=== PATIENT | female | born 1960 | race Caucasian/White ===

== ENCOUNTER 2025-06-02 09:31 | Observation (INO) ==
--- NOTE | 2025-06-02 09:55 | Emergency Department Note ---
History of Present Illness General Chief complaint: Syncope Stated complaint: SYNCOPE 05/29/25 Time Seen by Provider: 06/02/25 09:51 History of Present Illness Maximum Pain Intensity: 5 This is a 64-year-old female that presents to the emergency department via private vehicle with complaints of "syncope". The patient notes that on 05/29/2025 she had syncopal episode. This was this past Saturday. Patient notes that her found her on the floor. Unclear how long she was down. There was no preceding symptoms prior to the syncopal event. Reportedly patient did vomit twice once she regained consciousness after the syncopal event. Patient presents today noting ongoing dizziness described as a room spinning sensation. She saw her PCP yesterday and was referred to the ER because she is not feeling any better. She did strike her head during the syncopal episode. Patient has bruising to the forehead area, and right arm pain with bruise as well as left hip pain. No anticoagulant use. PCP note from yesterday reviewed, Dr. Lovelace. Home Medications Medication Instructions Recorded Confirmed Type multivitamin 1 tab PO QAM 04/14/18 06/02/25 History omega 6-thr-rqf-fish oil 1,000 mg 1 tab PO QAM 04/14/18 06/02/25 History (120 mg-180 mg) capsule (Fish Oil) albuterol sulfate 90 mcg/actuation 2 puff inhalation Q6H PRN 03/10/24 06/02/25 Rx aerosol inhaler shortness of breath or wheezing #8.5 grams cholecalciferol (vitamin D3) 125 125 mcg PO DAILY #30 caps 06/16/24 06/02/25 Rx mcg (5,000 unit) capsule mecobalamin (vitamin B12) 1,000 1,000 mcg PO DAILY #30 tabs 06/16/24 06/02/25 Rx mcg chewable tablet betamethasone valerate 0.1 % 1 applic topical BID PRN skin 12/17/24 06/02/25 Rx topical cream irritation #45 grams fluticasone fur. 100 mcg-umeclid 1 inh inhalation DAILY 12/17/24 06/02/25 History 62.5 mcg-vilant 25 mcg inhalat.powder (Trelegy Ellipta) evolocumab 140 mg/mL subcutaneous 140 mg subcut .every 2 weeks 02/15/25 06/02/25 History pen injector (Eamon Mendez) ondansetron 8 mg disintegrating 8 mg PO Q8H PRN nausea and 04/06/25 06/02/25 Rx tablet vomiting #30 tabs escitalopram oxalate 5 mg tablet 5 mg PO DAILY #30 tabs 04/20/25 06/02/25 Rx (Lexapro) lorazepam 0.5 mg tablet 0.5 mg PO Q8H PRN anxiety #20 tabs 04/20/25 06/02/25 Rx omeprazole 40 mg capsule,delayed 40 mg PO QAM PRN GERD 06/01/25 06/02/25 History release triamcinolone acetonide 0.1 % 1 applic topical BID PRN Rash 06/01/25 06/02/25 History topical ointment tirzepatide 5 mg/0.5 mL 5 mg subcut WK 06/02/25 06/02/25 History subcutaneous pen injector Allergies Allergy/AdvReac Type Severity Reaction Status Date / Time doxycycline Allergy Unknown Hives Verified 06/01/25 14:34 morphine Allergy Unknown passed out Verified 06/01/25 14:34 shellfish derived Allergy Unknown Anaphylaxis Verified 06/01/25 14:34 Iodinated Contrast Media AdvReac Unknown Vomiting Verified 06/01/25 14:34 Past Med/Surg History Problem List (Updated 06/02/25 @ 17:04 by Deejay Yañez PA-C) Contusion of forehead (Acute) Elbow pain, right (Acute) Hip pain, left (Acute) Syncope and collapse (Acute) Long COVID memory loss Asthma Urticaria Pulmonary nodule Word finding difficulty Brain fog Anxiety Diabetes mellitus, type 2 Overweight Subclinical hypothyroidism hx abnormal thyroid levels, tried med ...altered meds further - pt was told d/c medication. 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/2021) FNA x 2, thyrseq testing low risk, no further f/u needed GERD (gastroesophageal reflux disease) History of colon polyps Fatty liver disease, nonalcoholic Migraine Hyperlipidemia Medical History Nontoxic thyroid nodule History of colon polyps History of COVID-19 Polyp of stomach History of anesthesia reaction Surgical History Hx of cardiac catheterization History of colonoscopy S/P fine needle aspiration History of dilatation and curettage History of section History of esophagogastroduodenoscopy (EGD) (04/2018) Family History Daughter Diabetes Sister Colonic polyp Venous insufficiency Mother AAA (abdominal aortic aneurysm) Rheumatic heart disease Smoker Father Heart disease Glaucoma Sister Hypothyroidism Daughter PKU (phenylketonuria) Diabetes type I Brother Coronary heart disease Myocardial infarction, Onset Age: 72 Denies family history of Ovarian cancer Prostate cancer Breast cancer Colorectal cancer Social History Smoking Status: Never smoker Second Hand Exposure: No; Do You Dip or Chew Tobacco: No; Tobacco Cessation Education Requested by Patient: No Hx Alcohol Use: Yes Alcohol type: beer and wine Alcohol Intake Frequency: Monthly or Less Hx Substance Use: No Preferred Language: Albanian Communication Ability: Effective Visual Impairment: No Limitations Hearing Ability: Normal Management Services Technician Required: No Beliefs That Will Affect Care: None marital status: Current Living Situation: Spouse Current Living Situation Comment: Lives with and daughter current occupational status: employed current occupation: [employer] How many Children do You have: 3 Other Information That Helps Us Care for You: No Feels Safe at Home: Yes Safety Concerns: Feels Safe At This Time Diet: regular Diet Comment: regular during the past year weight has: remained stable Dental Care, Regularly: Yes Physical Activity Frequency: Other Seatbelt Use: always Sunscreen Use: Yes Assistive Devices: Glasses Review of Systems A total of 10 systems reviewed and were otherwise negative Physical Exam Vital Signs Vital Signs - 24 hr 06/02/25 09:43 06/02/25 11:50 06/02/25 12:00 Temperature 36.5 C 36.7 C Temperature Source Skin Oral Pulse Rate 75 Pulse Rate [Apical] 73 73 Pulse Rhythm [Apical] Regular Pulse Strength [Apical] Normal Respiratory Rate 20 18 14 Respiratory Effort / Characteristics Non-Labored Spontaneous Spontaneous Respiratory Depth Normal Normal Respiratory Pattern Regular Regular Blood Pressure 133/77 Blood Pressure [Right Arm] 144/79 H 141/74 H Blood Pressure Mean 95 Blood Pressure Mean [Right Arm] 100 96 Blood Pressure Position [Right Arm] Lying Pulse Oximetry 98 99 99 Oxygen Delivery Method Room Air Room Air Room Air Sepsis Recent Fever Within 48 Hours No Sepsis New/Unexplained Change in Mental Status N/A Sepsis Action Taken by Nursing No Action Required 06/02/25 12:30 Temperature Temperature Source Pulse Rate Pulse Rate [Apical] 84 Pulse Rhythm [Apical] Pulse Strength [Apical] Respiratory Rate 16 Respiratory Effort / Characteristics Respiratory Depth Respiratory Pattern Blood Pressure Blood Pressure [Right Arm] 156/130 H Blood Pressure Mean Blood Pressure Mean [Right Arm] 138 Blood Pressure Position [Right Arm] Pulse Oximetry 99 Oxygen Delivery Method Room Air Sepsis Recent Fever Within 48 Hours Sepsis New/Unexplained Change in Mental Status Sepsis Action Taken by Nursing VITAL SIGNS - Vital signs and nursing notes were reviewed. Stable and afebrile. GENERAL - 64-year-old female appearing her stated age who is in no acute distress. Communicates well with provider and answers questions appropriately. SKIN - Without rashes. Left forehead ecchymosis, right elbow/RUE region. Small amount of swelling to the left hip area HEAD - NC/AT. EYES - PERRL with EOMI bilaterally. Sclera anicteric. EARS - No deformities of external structures noted on gross examination bilaterally. TMs clear. NOSE - Midline and without cyanosis. No epistaxis or purulent drainage noted. Septum midline without deviation or septal hematoma noted. MOUTH/OROPHARYNX - Without perioral cyanosis. NECK - No nuchal rigidity. LUNGS - Chest wall symmetric without accessory muscle use, intercostals retractions, or central cyanosis. Normal vesicular breath sounds CTA B/L. No wheezes, rales, or rhonchi appreciated. CARDIAC - RRR ABDOMEN - Abdominal contour normal without pulsations or visible masses. BS normoactive all four quadrants. No tenderness, palpable masses, hepatosplenomegaly, or ascites noted. EXTREMITIES - No clubbing or peripheral cyanosis. +5/5 strength noted in UE/LE bilaterally. NEUROLOGIC - Cranial nerves II through XII grossly intact. PSYCH -alert, oriented and pleasant on exam Course Administered Medications Sodium Chloride (Nss) 1,000 mls @ 125 mls/hr IV .Q8H ONE Stop: 06/02/25 19:45 Last Admin: 06/02/25 11:51 Dose: 125 mls/hr Documented By: amg Discontinued Medications Midodrine (Midodrine Hcl 2.5 Mg Tab) 5 mg PO NOW STA Stop: 06/02/25 12:43 Last Admin: 06/02/25 13:53 Dose: 5 mg Documented By: SIMEON Medical Decision Making Laboratory Data 06/02/25 10:15 06/02/25 10:15 Lab Results 06/02/25 06/02/25 Range/Units 10:10 10:15 WBC 5.01 (4.8-10.8) K/ul RBC 4.48 (4.20-5.40) M/uL Hgb 13.8 (12.0-16.0) g/dL Hct 39.9 (37.0-47.0) % MCV 89.1 (80.0-100.0) fL MCH 30.8 (25.0-34.0) pg MCHC 34.6 (32.0-36.0) g/dL RDW Std Deviation 41.1 (36.4-46.3) fL RDW Coeff of Michael 12.5 (11.5-14.5) % Plt Count 234 (130-400) K/uL MPV 10.0 (9.4-12.4) fL Immature Gran % (Auto) 0.2 % Neut % (Auto) 50.1 % Lymph % (Auto) 40.5 % [place] % (Auto) 5.4 % Eos % (Auto) 2.8 % Baso % (Auto) 1.0 % Neut # (Auto) 2.51 (1.40-6.50) K/uL Lymph # (Auto) 2.03 (1.20-3.40) K/uL [place] # (Auto) 0.27 (0.11-0.59) K/uL Eos # (Auto) 0.14 (0.00-0.50) K/uL Baso # (Auto) 0.05 (0.00-0.20) K/uL Immature Gran # (Auto) 0.01 (0.01-0.20) K/uL ESR 18 (0-30) mm/hr PT 10.0 (9.0-12.0) Seconds INR 0.9 (0.9-1.1) APTT 23 (21-31) Seconds PTT Ratio 0.8 Sodium 141 (136-145) mmol/L Potassium 4.1 (3.5-5.1) mmol/L Chloride 103 (98-107) mmol/L Carbon Dioxide 31 (21-32) mmol/L Anion Gap 7 (3-11) BUN 7 (6-23) mg/dl Creatinine 0.77 (0.6-1.2) mg/dl Est Cr Clr Drug Dosing 62.7 ml/min eGFR 87.16 BUN/Creatinine Ratio 9.1 L (10-20) Glucose 99 (70-99(Fasting)) mg/dl Calcium 9.1 (8.6-10.3) mg/dl Magnesium 2.0 (1.7-2.4) mg/dl Total Bilirubin 0.6 (0.2-1.0) mg/dl AST 15 (13-39) U/L ALT 11 (7-52) U/L Alkaline Phosphatase 54 (34-104) U/L Total Creatine Kinase 37 (26-192) U/L Troponin I High Sens < 2.3 (0-14) pg/ml C-Reactive Protein < 0.50 (0-0.5) mg/dl Total Protein 7.0 (6.0-8.3) gm/dl Albumin 4.4 (3.4-5.0) gm/dl Globulin 2.6 (2.5-4.0) gm/dl Albumin/Globulin Ratio 1.7 (0.9-2) Procalcitonin 0.03 (0-0.5) ng/ml TSH 2.439 (0.300-4.500) uIu/ml Anaplasma Smear See Comment Babesia Smear See Comment Lyme Disease Screen Negative (Negative) Imaging Data Radiologist's Impression: Cervical Spine CT 06/02/25 10:14 CT SCAN OF THE CERVICAL SPINE CLINICAL HISTORY: Fall. COMPARISON STUDY: None. TECHNIQUE: CT scan of the cervical spine is performed from the skull base to the upper thoracic spine. Images are reviewed in the axial, sagittal, and coronal planes. IV contrast was not administered for this examination. A dose lowering technique was utilized adhering to the principles of ALARA. CT DOSE: 1119.59 mGy.cm FINDINGS: Skeletal structures: There is no evidence of fracture or subluxation involving the cervical spine. Vertebral body height and alignment are maintained. The odontoid process and lateral masses are intact. The atlantoaxial articulation is preserved. The spinous processes appear intact. Moderate multilevel degenerative changes within the cervical spine are present. Soft tissues: Right lobe thyroid nodule is again noted. This was shown on ultrasound of April 17, 2024 and is similar to that exam when allowing for differences in technique. Calvarium: The visualized calvarium at the skull base appears intact. Brain parenchyma: Partially visualized brain parenchyma at the skull base is within normal limits. Lung apices: Clear as visualized. IMPRESSION: No acute cervical spine fracture or subluxation. ACT 112: Negative or not required by law. Electronically signed by: Michi Gonzalez M.D. 06/02/2025 11:[address] 06/02/25 10:14 CT head/brain wo con CLINICAL HISTORY: 64 years-old Female with syncope, fall. Acute syncope with head trauma and fall TECHNIQUE: Multiple axial CT images of the head were obtained without contrast. A dose lowering technique was utilized adhering to the principles of ALARA. COMPARISON: CT cervical spine same day, brain MRI 04/16/2025 FINDINGS: No acute intracranial hemorrhage, midline shift, intracranial mass, hydrocephalus, territorial ischemia or abnormal extra-axial collection. Involutional changes with mild white matter hypodensities suggestive of chronic microvascular ischemic disease. The calvarium is intact. The paranasal sinuses, mastoid air cells, and middle ear cavities are clear. IMPRESSION: No acute intracranial abnormality or calvarial fracture. ACT 112: Negative or not required by law. The above report was generated using voice recognition software. It may contain grammatical, syntax or spelling errors. Electronically signed by: Duke Abarca M.D. 06/02/2025 11:39 AM Chest X-Ray 06/02/25 10:17 XR chest 1V portable HISTORY: 64 years-old Female syncope COMPARISON: Chest CT 01/04/2025 TECHNIQUE: AP view of the chest FINDINGS: Cardiomediastinal and hilar silhouettes are within normal limits. There is no pneumothorax, pleural effusion, airspace consolidation or pulmonary edema. Degenerative changes of the shoulders and spine. IMPRESSION: No acute process. ACT 112: Negative or not required by law. The above report was generated using voice recognition software. It may contain grammatical, syntax or spelling errors. Electronically signed by: Duke Abarca M.D. 06/02/2025 10:55 AM Hip/Pelvis X-Ray 06/02/25 10:17 SINGLE VIEW PELVIS; 2 VIEWS LEFT HIP CLINICAL HISTORY: Fall. Left hip pain. FINDINGS: An AP view of the pelvis is obtained with AP and frog-leg views of the left hip. No prior studies are available for comparison at the time of dictation. The skeletal structures are osteopenic. There is no radiographic evidence of acute fracture involving the hips or bony pelvis. Mild arthritic change and joint space narrowing is seen in the hips. There is degenerative sclerosis of the sacroiliac joints. The overlying soft tissues are within normal limits. Tiny phleboliths are noted in the pelvis. IMPRESSION: No acute bony abnormality is identified. Electronically signed by: Ricky Beard M.D. 06/02/2025 10:46 AM Elbow X-Ray 06/02/25 10:28 XR elbow RT min 3V routine CLINICAL HISTORY: Syncope. Fall. Right elbow pain. COMPARISON: None FINDINGS: An IV within the right antecubital fossa is incidentally noted. Alignment of the right elbow is anatomic. There are no fractures. No joint effusion. Irregularity of the lateral condyle with a small well-corticated ossicle is chronic. IMPRESSION: No fractures within the right elbow. No joint effusion. ACT 112: Negative or not required by law. Electronically signed by: Michi Gonzalez M.D. 06/02/2025 10:52 AM MDM Narrative Patient was seen and evaluated as above in room D04A. Review was performed of nursing notes and vital signs. I did review pertinent previous visits and patient history. After obtaining a thorough history and physical examination the above work up was performed. Patient presents to us today with the above symptoms. She is clinically well-appearing and nontoxic. Vital signs are stable. No focal neurologic deficit. EKG was performed. Per my interpretation this is a normal sinus rhythm at a rate of 73 bpm. QTc 434. QRS 78. No ST elevation on this rhythm tracing. X-rays of the right elbow, pelvis plus left hip as well as chest x-ray were obtained and reviewed. No fracture seen. CT head and C-spine were also obtained noting recent syncopal event with head strike. These were overall negative for acute process. No leukocytosis or concerning anemia. Coags normal. No evidence of kidney or liver failure. Total CK normal. Troponin within normal range. ESR and CRP are normal. TSH reveals euthyroid state. Procalcitonin within normal range. Urinalysis without finding to suggest infection. Lyme screen negative. Babesia, Anaplasma and Ehrlichia testing is pending at this time. CT angio considered however the patient does note rather significant allergy to IV contrast and would need appropriate premedication. At this time do believe that further evaluation and management inpatient setting is warranted. Case discussed with the hospitalist service. Please refer to further documentation regarding her stay. GCS: 15 In the evaluation and treatment of this patient the following differential diagnoses were entertained: CVA, TIA, carotid stenosis, Lyme disease/tickborne illness, among others. Impression & Plan Syncope and collapse, Hip pain, left, Elbow pain, right, Contusion of forehead Discharge Plan Visit Data Chief Complaint: Syncope Stated Complaint: SYNCOPE 05/29/25 ED Provider: Smith Orozco ED Midlevel Provider: Deejay Yañez Discharge Problem: Syncope and collapse, Hip pain, left, Elbow pain, right, Contusion of forehead Patient Disposition: Admitted As Inpatient Condition: Good
[2025-06-02 10:32] LABS: Hematocrit (blood only) 39.9 % (37.0-47.0); Hemoglobin 13.8 g/dL (12.0-16.0); Immature Granulocytes # (auto) 0.01 K/uL (0.01-0.20); Immature Granulocytes % (auto) 0.2 %; Mean Corpuscular Hemoglobin 30.8 pg (25.0-34.0); Mean Corpuscular Volume 89.1 fL (80.0-100.0); Platelet Count 234 K/uL (130-400); RDW Standard Deviation 41.1 fL (36.4-46.3); Red Blood Count 4.48 M/uL (4.20-5.40); White Blood Count 5.01 K/ul (4.8-10.8)
--- NOTE | 2025-06-02 10:48 | XRay Report ---
SINGLE VIEW PELVIS; 2 VIEWS LEFT HIP CLINICAL HISTORY: Fall. Left hip pain. FINDINGS: An AP view of the pelvis is obtained with AP and frog-leg views of the left hip. No prior s tudies are available for comparison at the time of dictation. The skeletal structures are osteopenic. There is no radiographic evidence of acute fracture involving the hips or bony pelvis. Mild arthriti c change and joint space narrowing is seen in the hips. There is degenerative sclerosis of the sacroi liac joints. The overlying soft tissues are within normal limits. Tiny phleboliths are noted in the p meredith. IMPRESSION: No acute bony abnormality is identified. Electronically signed by: Ricky Beard M.D. 06/02/2025 10:46 AM
--- NOTE | 2025-06-02 10:53 | XRay Report ---
XR elbow RT min 3V routine CLINICAL HISTORY: Syncope. Fall. Right elbow pain. COMPARISON: None FINDINGS: An IV within the right antecubital fossa is incidentally noted. Alignment of the right elb ow is anatomic. There are no fractures. No joint effusion. Irregularity of the lateral condyle with a small well-corticated ossicle is chronic. IMPRESSION: No fractures within the right elbow. No joint effusion. ACT 112: Negative or not required by law. Electronically signed by: Michi Gonzalez M.D. 06/02/2025 10:52 AM
--- NOTE | 2025-06-02 10:57 | XRay Report ---
XR chest 1V portable HISTORY: 64 years-old Female syncope COMPARISON: Chest CT 01/04/2025 TECHNIQUE: AP view of the chest FINDINGS: Cardiomediastinal and hilar silhouettes are within normal limits. There is no pneumothorax, pleural e ffusion, airspace consolidation or pulmonary edema. Degenerative changes of the shoulders and spine. IMPRESSION: No acute process. ACT 112: Negative or not required by law. The above report was generated using voice recognition software. It may contain grammatical, syntax o r spelling errors. Electronically signed by: Duke Abarca M.D. 06/02/2025 10:55 AM
[2025-06-02 11:06] LABS: Alanine Aminotransferase 11 U/L (7-52); Albumin Globulin Ratio 1.7 (0.9-2); Albumin Level 4.4 gm/dl (3.4-5.0); Alkaline Phosphatase 54 U/L (34-104); Anion Gap 7 (3-11); Bilirubin,Total 0.6 mg/dl (0.2-1.0); Blood Urea Nitrogen 7 mg/dl (6-23); Calcium 9.1 mg/dl (8.6-10.3); Carbon Dioxide 31 mmol/L (21-32); Chloride 103 mmol/L (98-107); Creatine Kinase 37 U/L (26-192); Creatinine Clr Calc Pharmacy 62.7 ml/min; Globulin 2.6 gm/dl (2.5-4.0); Glucose 99 mg/dl (70-99(Fasting)); Magnesium 2.0 mg/dl (1.7-2.4); Potassium 4.1 mmol/L (3.5-5.1); Procalcitonin 0.03 ng/ml (0-0.5); Sodium 141 mmol/L (136-145); Total Protein 7.0 gm/dl (6.0-8.3)
[2025-06-02 11:11] LABS: INR 0.9 (0.9-1.1); Partial Thromboplastin Time 23 Seconds (21-31); Prothrombin Time 10.0 Seconds (9.0-12.0)
[2025-06-02 11:18] LABS: Thyroid Stimulating Hormone 2.439 uIu/ml (0.300-4.500)
[2025-06-02 11:32] LABS: Lyme Screen Rflx Confirmation Negative (Negative)
--- NOTE | 2025-06-02 11:34 | CT Scan Report ---
CT SCAN OF THE CERVICAL SPINE CLINICAL HISTORY: Fall. COMPARISON STUDY: None. TECHNIQUE: CT scan of the cervical spine is performed from the skull base to the upper thoracic spine . Images are reviewed in the axial, sagittal, and coronal planes. IV contrast was not administered fo r this examination. A dose lowering technique was utilized adhering to the principles of ALARA. CT DOSE: 1119.59 mGy.cm FINDINGS: Skeletal structures: There is no evidence of fracture or subluxation involving the cervical spine. Ve rtebral body height and alignment are maintained. The odontoid process and lateral masses are intact . The atlantoaxial articulation is preserved. The spinous processes appear intact. Moderate multileve l degenerative changes within the cervical spine are present. Soft tissues: Right lobe thyroid nodule is again noted. This was shown on ultrasound of April 17 and is similar to that exam when allowing for differences in technique. Calvarium: The visualized calvarium at the skull base appears intact. Brain parenchyma: Partially visualized brain parenchyma at the skull base is within normal limits. Lung apices: Clear as visualized. IMPRESSION: No acute cervical spine fracture or subluxation. ACT 112: Negative or not required by law. Electronically signed by: Michi Gonzalez M.D. 06/02/2025 11:33 AM
--- NOTE | 2025-06-02 11:41 | CT Scan Report ---
CT head/brain wo con CLINICAL HISTORY: 64 years-old Female with syncope, fall. Acute syncope with head trauma and fall TECHNIQUE: Multiple axial CT images of the head were obtained without contrast. A dose lowering tech nique was utilized adhering to the principles of ALARA. COMPARISON: CT cervical spine same day, brain MRI 04/16/2025 FINDINGS: No acute intracranial hemorrhage, midline shift, intracranial mass, hydrocephalus, territorial ischem ia or abnormal extra-axial collection. Involutional changes with mild white matter hypodensities sugg estive of chronic microvascular ischemic disease. The calvarium is intact. The paranasal sinuses, mastoid air cells, and middle ear cavities are clear . IMPRESSION: No acute intracranial abnormality or calvarial fracture. ACT 112: Negative or not required by law. The above report was generated using voice recognition software. It may contain grammatical, syntax o r spelling errors. Electronically signed by: Duke Abarca M.D. 06/02/2025 11:39 AM
[2025-06-02] MEDS: SODIUM CHLORIDE 0.9% 1,000 ML IV ONE (11:51)
--- NOTE | 2025-06-02 12:55 | History & Physical Report ---
Date of Service June 02, 2025 Assessment & Plan (1) Syncope and collapse: Plan: Probably from POTS disease. This could possibly be related to multiple COVID vaccines she states she has received. No previous history of seizure disorder. She denies any recent melena or hematochezia. She is placed in observation with telemetry along with IV fluids. Midodrine has been started. Orthostatic blood pressure will be monitored EEG ordered and pending to rule out any seizure activity. (2) Diabetes mellitus, type 2: Plan: ADA diet. Sliding scale coverage (3) Asthma: Plan: Currently stable. Inhaler as needed (4) Hyperlipidemia: Plan: Repatha is currently on hold Plan Hopeful discharge to home tomorrow, June 03 History of Present Illness Chief Complaint: Passing out Primary Care Provider: Paulina Lovelace, DO 64-year-old white female who suffered a syncopal episode when she stood up from a sitting position earlier today. She has no recollection of the event. No previous seizure disorder. She had no feelings of chest pain, shortness of breath, palpitations, or hypoglycemia before the event. Her blood pressure has recently been low by home checks. She states she has received at least 4 COVID vaccines and this most likely represents POTS disease. She will be placed in observation with IV fluids and telemetry. Orthostatic blood pressure will be monitored. Midodrine 5 mg 3 times a day will be started. EEG ordered to rule out any underlying seizure activity. She has no previous history of seizures however. No melena or hematochezia Allergies Allergy/AdvReac Type Severity Reaction Status Date / Time doxycycline Allergy Unknown Hives Verified 06/01/25 14:34 morphine Allergy Unknown passed out Verified 06/01/25 14:34 shellfish derived Allergy Unknown Anaphylaxis Verified 06/01/25 14:34 Iodinated Contrast Media AdvReac Unknown Vomiting Verified 06/01/25 14:34 Home Medications Medication Instructions Recorded Confirmed Type multivitamin 1 tab PO QAM 04/14/18 06/01/25 History omega 8-gku-yvw-fish oil 1,000 mg 1 tab PO QAM 04/14/18 06/01/25 History (120 mg-180 mg) capsule (Fish Oil) albuterol sulfate 90 mcg/actuation 2 puff inhalation Q6H PRN 03/10/24 06/01/25 Rx aerosol inhaler shortness of breath or wheezing #8.5 grams cholecalciferol (vitamin D3) 125 125 mcg PO DAILY #30 caps 06/16/24 06/01/25 Rx mcg (5,000 unit) capsule mecobalamin (vitamin B12) 1,000 1,000 mcg PO DAILY #30 tabs 06/16/24 06/01/25 Rx mcg chewable tablet betamethasone valerate 0.1 % 1 applic topical BID PRN skin 12/17/24 06/01/25 Rx topical cream irritation #45 grams fluticasone fur. 100 mcg-umeclid 1 inh inhalation DAILY 12/17/24 06/01/25 History 62.5 mcg-vilant 25 mcg inhalat.powder (Trelegy Ellipta) evolocumab 140 mg/mL subcutaneous 140 mg subcut .every 2 weeks 02/15/25 06/01/25 History pen injector (Eamon Mendez) ondansetron 8 mg disintegrating 8 mg PO Q8H PRN nausea and 04/06/25 06/01/25 Rx tablet vomiting #30 tabs tirzepatide 5 mg/0.5 mL 5 mg (0.5 mL) subcut .weekly #2 mL 04/08/25 06/01/25 Rx subcutaneous pen injector escitalopram oxalate 5 mg tablet 5 mg PO DAILY #30 tabs 04/20/25 06/01/25 Rx (Lexapro) lorazepam 0.5 mg tablet 0.5 mg PO Q8H PRN anxiety #20 tabs 04/20/25 06/01/25 Rx omeprazole 40 mg capsule,delayed 40 mg PO QAM PRN GERD 06/01/25 06/01/25 History release triamcinolone acetonide 0.1 % 1 applic topical BID PRN 06/01/25 06/01/25 History topical ointment Past Med/Surg History Problem List (Updated 06/02/25 @ 12:53 by Marc Giron MD) Syncope and collapse Long COVID memory loss Asthma Urticaria Pulmonary nodule Word finding difficulty Brain fog Anxiety Diabetes mellitus, type 2 Overweight Subclinical hypothyroidism hx abnormal thyroid levels, tried med ...altered meds further - pt was told d/c medication. 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/2021) FNA x 2, thyrseq testing low risk, no further f/u needed GERD (gastroesophageal reflux disease) History of colon polyps Fatty liver disease, nonalcoholic Migraine Hyperlipidemia Medical History Nontoxic thyroid nodule History of colon polyps History of COVID-19 Polyp of stomach History of anesthesia reaction Surgical History Hx of cardiac catheterization History of colonoscopy S/P fine needle aspiration History of dilatation and curettage History of section History of esophagogastroduodenoscopy (EGD) (04/2018) Family History Daughter Diabetes Sister Colonic polyp Venous insufficiency Mother AAA (abdominal aortic aneurysm) Rheumatic heart disease Smoker Father Heart disease Glaucoma Sister Hypothyroidism Daughter PKU (phenylketonuria) Diabetes type I Brother Coronary heart disease Myocardial infarction, Onset Age: 72 Denies family history of Ovarian cancer Prostate cancer Breast cancer Colorectal cancer Social History Smoking Status: Never smoker Second Hand Exposure: Yes (both parents smoked); Do You Dip or Chew Tobacco: No; Hx Alcohol Use: No Hx Substance Use: No Preferred Language: Greek Communication Ability: Effective Visual Impairment: No Limitations Hearing Ability: Normal Box Car Washer Required: No Beliefs That Will Affect Care: None marital status: Current Living Situation: Family Current Living Situation Comment: Lives with and daughter current occupational status: employed current occupation: [employer] How many Children do You have: 3 Feels Safe at Home: Yes Diet: regular Diet Comment: regular during the past year weight has: remained stable Dental Care, Regularly: Yes Physical Activity Frequency: Other Seatbelt Use: always Sunscreen Use: Yes Assistive Devices: Glasses Review of Systems 2 Review of Systems: Constitutionalno fever or chills ENTno blurred vision, no double vision, no epistaxis, no sore throat Respiratoryno cough, no wheezing, no shortness of breath Cardiacno palpitations, no chest pain. She did suffer syncope today without warning Precious nausea, vomiting, diarrhea, melena, hematochezia GUno urinary retention, no urinary incontinence, no dysuria, no hematuria Musculoskeletalno joint pain, no muscle tenderness Skin no rashes, no pruritus. Bruising and mild swelling noted left forehead area Neurono isolated weakness, no paresthesia, no weakness Psychno depression, no anxiety Physical Exam 2 Physical Exam: General-alert and oriented x3, no fever, no chills HEENT-head atraumatic and normocephalic, pupils equal and reactive to light, extraocular muscles intact Neck-no lymphadenopathy or thyromegaly, trachea midline Chest-clear to auscultation. No rales, wheezing or rhonchi Cardiac-mildly tachycardic regular rate. Normal S1 and S2 Abdomen-normal bowel sounds, no hepatosplenomegaly Extremities-no cyanosis, clubbing, or edema Skinecchymotic and slightly edematous area left forehead Neuro-cranial nerves II through XII intact, motor and sensory function within normal limits, strength symmetrical, no focal deficits Psych-normal affect, normal mood Results & Data Results & Data Vital Signs (Past 12 Hours) Vital Signs Temp Pulse Pulse Resp BP BP Pulse Ox 06/02/25 12:00 73 14 141/74 H 99 06/02/25 09:43 36.5 C 75 20 133/77 98 O2 Del Method 06/02/25 12:00 Room Air 06/02/25 09:43 Room Air Laboratory Results 06/02/25 10:15 06/02/25 10:15 Code Status & VTE Plan Code Status Full code PG Care Time/CCT Total # of Minutes Spent Total Time Spent with Patient: Total time spent is greater than 50% in coordination of care (as documented) at patient's floor/unit and/or counseling patient: Coding Level of Care Code 08144 INT INP/OBS CARE 3/75MIN Diagnoses Syncope and collapse R55 Diabetes mellitus, type 2 E11.9 Asthma J45.909 Hyperlipidemia E78.5
[2025-06-02] MEDS: MIDODRINE HCL 2.5 MG TAB PO STA (13:53)
[2025-06-02] MEDS ORDERED: GLUCAGON FOR INJ 1 MG VIAL SQ PRN (14:26)
[2025-06-02] MEDS ORDERED: ALBUTEROL HFA 8 GM INHALER INH PRN (14:26)
[2025-06-02] MEDS ORDERED: ACETAMINOPHEN 325 MG TAB PO PRN (14:26)
[2025-06-02] MEDS ORDERED: GLUCOSE 10 TAB/TUBE PO PRN (14:26)
[2025-06-02] MEDS ORDERED: DEXTROSE 50% 50 ML SYRINGE IV PRN (14:26)
[2025-06-02] MEDS ORDERED: ONDANSETRON INJ 2 MG/ML 2 ML VIAL IV PRN (14:26)
[2025-06-02] MEDS ORDERED: LORazepam 0.5 MG TAB PO PRN (14:26)
[2025-06-02] MEDS ORDERED: CARBOHYDRATES FOR HYPOGLYCEMIA PO PRN (14:26)
[2025-06-02] MEDS ORDERED: GLUCOSE 40% GEL 15 GM TUBE PO PRN (14:26)
[2025-06-02 15:17] LABS: Appearance Urine Clear (Clear); Bacteria Urine Automated None Seen (None Seen); Cast Urine Automated 0-2 /lpf (0-2); Epithelial Cell Urine Auto 0-2 /hpf (0-2); Glucose Urine UA Negative (Negative); RBC Urine Automated 0-2 /hpf (0-2); WBC Urine Automated 0-5 /hpf (0-5)
[2025-06-02] MEDS: INSULIN ASPART PER UNIT CHARGE SC SCH (17:03)
[2025-06-02] MEDS: MIDODRINE HCL 2.5 MG TAB PO SCH (17:17)
[2025-06-02] MEDS: SODIUM CHLORIDE 0.9% 1,000 ML IV SCH (21:55)
[2025-06-03 07:06] LABS: Hematocrit (blood only) 35.8 % (37.0-47.0); Hemoglobin 12.3 g/dL (12.0-16.0); Immature Granulocytes # (auto) 0.01 K/uL (0.01-0.20); Immature Granulocytes % (auto) 0.2 %; Mean Corpuscular Hemoglobin 31.2 pg (25.0-34.0); Mean Corpuscular Volume 90.9 fL (80.0-100.0); Platelet Count 204 K/uL (130-400); RDW Standard Deviation 41.1 fL (36.4-46.3); Red Blood Count 3.94 M/uL (4.20-5.40); White Blood Count 5.07 K/ul (4.8-10.8)
[2025-06-03 07:45] VITALS: RESP 16; TEMP 97.9; O2SAT 99
[2025-06-03 08:01] LABS: Alanine Aminotransferase 9.0 U/L (7-52); Albumin Globulin Ratio 1.7 (0.9-2); Albumin Level 3.8 gm/dl (3.4-5.0); Alkaline Phosphatase 48.0 U/L (34-104); Anion Gap 5.0 (3-11); Bilirubin,Total 0.6 mg/dl (0.2-1.0); Blood Urea Nitrogen 9.0 mg/dl (6-23); Calcium 8.8 mg/dl (8.6-10.3); Carbon Dioxide 30.0 mmol/L (21-32); Chloride 107.0 mmol/L (98-107); Creatinine Clr Calc Pharmacy 58.7 ml/min; Globulin 2.3 gm/dl (2.5-4.0); Glucose 99.0 mg/dl (70-99(Fasting)); Potassium 4.7 mmol/L (3.5-5.1); Sodium 142.0 mmol/L (136-145); Total Protein 6.1 gm/dl (6.0-8.3)
--- NOTE | 2025-06-03 08:48 | Discharge Summary ---
Discharge Summary Date of Service June 03, 2025 Principal Dx & Hospital Course #1 = Principal Diagnosis (1) Syncope and collapse: Probably from POTS disease. This could possibly be related to multiple COVID vaccines she states she has received. No previous history of seizure disorder. EEG has been completed but the final report is pending but likely to be negative. She denies any recent melena or hematochezia. She was placed in observation with telemetry along with IV fluids. Midodrine 5 mg 3 times a day was administered and will continue at discharge. Blood pressure remained stable while hospitalized. (2) Diabetes mellitus, type 2: ADA diet. Sliding scale coverage while hospitalized. Resume normal diabetic management at discharge (3) Asthma: Currently stable. Inhaler as needed (4) Hyperlipidemia: Repatha is currently on hold. Restarted at discharge Plan Home today, June 03, on midodrine 5 mg 3 times a day Admission HPI Per Admitting Provider 64-year-old white female who suffered a syncopal episode when she stood up from a sitting position earlier today. She has no recollection of the event. No previous seizure disorder. She had no feelings of chest pain, shortness of breath, palpitations, or hypoglycemia before the event. Her blood pressure has recently been low by home checks. She states she has received at least 4 COVID vaccines and this most likely represents POTS disease. She will be placed in observation with IV fluids and telemetry. Orthostatic blood pressure will be monitored. Midodrine 5 mg 3 times a day will be started. EEG ordered to rule out any underlying seizure activity. She has no previous history of seizures however. No melena or hematochezia Discharge Exam General-alert and oriented x3, no fever, no chills HEENT-head atraumatic and normocephalic, pupils equal and reactive to light, extraocular muscles intact Neck-no lymphadenopathy or thyromegaly, trachea midline Chest-clear to auscultation. No rales, wheezing or rhonchi Cardiac-mildly tachycardic regular rate. Normal S1 and S2 Abdomen-normal bowel sounds, no hepatosplenomegaly Extremities-no cyanosis, clubbing, or edema Skinecchymotic and slightly edematous area left forehead Neuro-cranial nerves II through XII intact, motor and sensory function within normal limits, strength symmetrical, no focal deficits Psych-normal affect, normal mood Discharge Plan Discharge Items Patient Disposition: Home - Self-Care Reason For Visit: SYNCOPE, SUSPECTED POTS Discharge Diagnosis: Syncope, suspected POTS Condition on Discharge: Good Activity: Resume your previous activity Non-emergency contact: Primary Care Provider Call non-emergency contact if: your symptoms worsen Follow-up/Referrals: Paulina Lovelace DO [Primary Care Provider] - Diet: Carb Consistent or DM2 and Heart Healthy Addtl Attending Provider Instructions: Take midodrine 5 mg 3 times daily for blood pressure support. Sit on the side of the bed to make sure there is no lightheadedness before you stand up. When you stand up, make sure there is no lightheadedness before you start walking. Follow-up with primary care provider soon as possible Pending Studies at Discharge: Yes Studies:: EEG report Stand-Alone Forms: My [facility] [place], Work/School Release, Smoking Cessation Medications and DC Order Prescriptions: New midodrine 5 mg tablet 5 mg PO TID Qty: 60 0RF Rx Instructions: do not give last dose of day after 6PM or within 4 hrs of bedtime Continued mecobalamin (vitamin B12) 1,000 mcg tablet,chewable 1,000 mcg PO DAILY Qty: 30 0RF cholecalciferol (vitamin D3) 125 mcg (5,000 unit) capsule 125 mcg PO DAILY Qty: 30 0RF triamcinolone acetonide 0.1 % ointment 1 applic topical BID PRN (Reason: Rash) omeprazole 40 mg capsule,delayed release(DR/EC) 40 mg PO QAM PRN (Reason: GERD) albuterol sulfate 90 mcg/actuation HFA aerosol inhaler 2 puff inhalation Q6H PRN (Reason: shortness of breath or wheezing) Qty: 8.5 3RF escitalopram oxalate [Lexapro] 5 mg tablet 5 mg PO DAILY Qty: 30 2RF lorazepam 0.5 mg tablet 0.5 mg PO Q8H PRN (Reason: anxiety) Qty: 20 0RF Repatha SureClick 140 mg/mL pen injector 140 mg subcut .every 2 weeks Trelegy Ellipta 100-62.5-25 mcg blister with device 1 inh inhalation DAILY betamethasone valerate 0.1 % cream 1 applic topical BID PRN (Reason: skin irritation) Qty: 45 1RF ondansetron 8 mg tablet,disintegrating 8 mg PO Q8H PRN (Reason: nausea and vomiting) Qty: 30 0RF multivitamin Tablet 1 tab PO QAM omega 6-zim-jrz-fish oil [Fish Oil] 1,000 mg (120 mg-180 mg) Capsule 1 tab PO QAM tirzepatide 5 mg/0.5 mL pen injector 5 mg subcut WK Discharge Orders: Discharge Order (Routine); Ordered 06/03/25 Ordered By: Marc Giron Admission Data Admit Date/Time: 06/02/25 12:42 Attending Provider: Marc Giron Admit Provider: Marc Giron Primary Care Provider: Paulina Lovelace Other Providers: Marc Giron Hospital Stay Data Consultations 06/02/25 12:01 ED Decision to Admit Stat Diagnostic Imagining Performed 06/02/25 10:14 CT cervical spine wo con Stat CT head/brain wo con Stat Pending Results Patient Have Any Pending Studies at Discharge: Yes Discharge Instructions Given to Patient (Per Discharging Provider) Take midodrine 5 mg 3 times daily for blood pressure support. Sit on the side of the bed to make sure there is no lightheadedness before you stand up. When you stand up, make sure there is no lightheadedness before you start walking. Follow-up with primary care provider soon as possible Total Time Total Time Spent Total Time Spent (In Minutes): 45 minutes. Total time included patient exam, discharge planning, medication reconciliation. Coding Level of Care Code 61282 INP/OBS DISCH >30 MIN Diagnoses Syncope and collapse R55 Diabetes mellitus, type 2 E11.9 Asthma J45.909 Hyperlipidemia E78.5
[2025-06-03] MEDS: CYANOCOBALAMIN (B-12) 500 MCG TABLET PO SCH (08:49)
[2025-06-03] MEDS: MULTIVITAMIN TAB PO SCH (08:49)
[2025-06-03] MEDS: CHOLECALCIFEROL 125 MCG (5,000 UNITS) TAB PO SCH (08:49)
[2025-06-03] MEDS: ESCITALOPRAM OXALATE 10 MG TAB PO SCH (08:49)
[2025-06-03 09:06] VITALS: BP 144/81
[2025-06-03 09:14] VITALS: PULSE 74
--- NOTE | 2025-06-03 09:16 | Electroencephalogram ---
EEG Procedure Note Date of Service June 03, 2025 Start / End Times Start Time: 6:49 AM End Time: 7:09 AM Referring Physician Mack History Syncope versus seizure Home Medication List Medication Instructions Recorded Confirmed Type multivitamin 1 tab PO QAM 04/14/18 06/02/25 History omega 1-pdg-bzs-fish oil 1,000 mg 1 tab PO QAM 04/14/18 06/02/25 History (120 mg-180 mg) capsule (Fish Oil) albuterol sulfate 90 mcg/actuation 2 puff inhalation Q6H PRN 03/10/24 06/02/25 Rx aerosol inhaler shortness of breath or wheezing #8.5 grams cholecalciferol (vitamin D3) 125 125 mcg PO DAILY #30 caps 06/16/24 06/02/25 Rx mcg (5,000 unit) capsule mecobalamin (vitamin B12) 1,000 1,000 mcg PO DAILY #30 tabs 06/16/24 06/02/25 Rx mcg chewable tablet betamethasone valerate 0.1 % 1 applic topical BID PRN skin 12/17/24 06/02/25 Rx topical cream irritation #45 grams fluticasone fur. 100 mcg-umeclid 1 inh inhalation DAILY 12/17/24 06/02/25 History 62.5 mcg-vilant 25 mcg inhalat.powder (Trelegy Ellipta) evolocumab 140 mg/mL subcutaneous 140 mg subcut .every 2 weeks 02/15/25 06/02/25 History pen injector (Eamon Mendez) ondansetron 8 mg disintegrating 8 mg PO Q8H PRN nausea and 04/06/25 06/02/25 Rx tablet vomiting #30 tabs escitalopram oxalate 5 mg tablet 5 mg PO DAILY #30 tabs 04/20/25 06/02/25 Rx (Lexapro) lorazepam 0.5 mg tablet 0.5 mg PO Q8H PRN anxiety #20 tabs 04/20/25 06/02/25 Rx omeprazole 40 mg capsule,delayed 40 mg PO QAM PRN GERD 06/01/25 06/02/25 History release triamcinolone acetonide 0.1 % 1 applic topical BID PRN Rash 06/01/25 06/02/25 History topical ointment tirzepatide 5 mg/0.5 mL 5 mg subcut WK 12/10/25 12/10/25 History subcutaneous pen injector midodrine 5 mg tablet 5 mg PO TID #60 tabs 06/03/25 Rx Inpatient Medication List Cyanocobalamin (Cyanocobalamin (B-12) 500 Mcg Tablet) 1,000 mcg PO DAILY ANNALISA Stop: 07/03/25 08:59 Last Admin: 06/03/25 08:49 Dose: 1,000 mcg Documented By: pepe Escitalopram Oxalate (Escitalopram Oxalate 10 Mg Tab) 5 mg PO DAILY ANNALISA Stop: 07/03/25 08:59 Last Admin: 06/03/25 08:49 Dose: 5 mg Documented By: pepe Sodium Chloride (Nss) 1,000 mls @ 80 mls/hr IV .[id number] ANNALISA Stop: 06/05/25 14:25 Last Infusion: 06/03/25 08:35 Dose: Infused Documented By: nazario Admin: 06/03/25 08:34 Dose: Not Given Documented By: nazario Admin: 06/02/25 21:55 Dose: 80 mls/hr Documented By: FELI Insulin Aspart (Insulin Aspart Per Unit Charge) 0 units SC ACHS [facility] Stop: 07/02/25 16:29 Last Admin: 06/02/25 21:00 Dose: Not Given Documented By: Admin: 06/02/25 17:03 Dose: Not Given Documented By: pepe Midodrine (Midodrine Hcl 2.5 Mg Tab) 5 mg PO TID@0800,1200,1700 ANNALISA Stop: 07/02/25 16:59 Last Admin: 06/03/25 08:49 Dose: 5 mg Documented By: pepe Admin: 06/02/25 17:17 Dose: 5 mg Documented By: pepe Multivitamins (Multivitamin Tab) 1 tab PO QAM ANNALISA Stop: 07/03/25 08:59 Last Admin: 06/03/25 08:49 Dose: 1 tab Documented By: pepe Vitamin D (Cholecalciferol 125 Mcg (5,000 Units) Tab) 125 mcg PO QAM [facility] Stop: 07/03/25 08:59 Last Admin: 06/03/25 08:49 Dose: 125 mcg Documented By: pepe Discontinued Medications Sodium Chloride (Nss) 1,000 mls @ 125 mls/hr IV .Q8H ONE Stop: 06/02/25 19:45 Last Infusion: 06/02/25 20:59 Dose: Infused Documented By: Admin: 06/02/25 11:51 Dose: 125 mls/hr Documented By: amg Midodrine (Midodrine Hcl 2.5 Mg Tab) 5 mg PO NOW STA Stop: 06/02/25 12:43 Last Admin: 06/02/25 13:53 Dose: 5 mg Documented By: CAP Description This is a 21 electrode EEG with a single channel dedicated to limited EKG. The electrodes were placed in accordance with the International 10-20 system. There is a posterior dominant rhythm of 10 Hz which is symmetrically distributed and attenuates with eye opening. There is a normal anterior to posterior organization. Photic stimulation is unremarkable. Hyperventilation is not performed. There is a symmetric frontal beta rhythm. In the mid to latter part of the study there is attenuation of the posterior dominant rhythm and the em ergence of generalized theta activity. There is IV drip artifact throughout the study. There are no epileptiform abnormalities. Interpretation Normal awake/drowsy EEG [facility] EEG Procedure Codes Indication for Procedure (1) Syncope and collapse: (2) Seizure-like activity: Neurology Neurology: [id number] EEG include record awake & drowsy
--- NOTE | 2025-06-03 16:46 | Electrocardiogram Report ---
Test Reason : Blood Pressure : */* mmHG Vent. Rate : 73 BPM Atrial Rate : 73 BPM P-R Int : 140 ms QRS Dur : 78 ms QT Int : 394 ms P-R-T Axes : 61 17 52 degrees QTcB Int : 434 ms Normal sinus rhythm Normal ECG No previous ECGs available Confirmed by Mani Jackson ([id number]) on 06/03/2025 4:45:58 PM Referred By: REFERRED SELF Confirmed By: Mani Jackson
== END 2025-06-03 10:11 | disposition home or self-care (01) ==
LOC: SUATTDRO → ED 09:31 → 2W 09:31